=== PATIENT | female | born 1950 | race Caucasian/White ===

== ENCOUNTER 2017-03-27 07:48 | Emergency (ER) | payer OTHER ==
[~2017-03-27] VITALS: Ht 154.9 cm; Wt 60.0 kg
[~2017-03-27 07:48] MED LIST: TRAM50TA PO
[2017-03-27 07:52] VITALS: BP 143/72; PULSE 87; RESP 18; TEMP 98.7; O2SAT 100
[2017-03-27] MEDS ORDERED: FLUO.05%ST TOPICAL (08:48)
--- NOTE | 2017-03-27 08:49 | PD ---
HPI . Itchy skin Chief Complaint: Skin Problem Time Seen by Provider: 08:33 Travel History International Travel<30 days: No Contact w/Intl Traveler<30days: No Traveled to known affect area: No History of Present Illness HPI 67-year-old female presents emergency department for evaluation of what she describes as bedbug bites. Patient states she has had little bugs in her apartment for a urinary half and has had pest control come to evaluate and exterminate but they cannot determine what kind of bugs they are. Patient states she has been bitten all over her body however she has provided wound care and currently is only dealing with bug bites on her left forearm. Patient describes them as itchy. Patient states she is here for a penicillin injection for these bug bites. Patient denies any fever, chills, malaise, chest pain, shortness breath, abdominal pain, nausea, vomiting, diarrhea. PFSH Past Medical History Diminished Hearing: No Musculoskeletal: Yes (CHRONIC NECK AND BACK PROBLEMS) Menopausal: Yes : 0 Para: 0 Past Surgical History Eye Surgery: Yes (BILATERAL CHILD) Tonsillectomy: Yes ( CHILD) Social History Alcohol Use: Yes (DAILY GLASS OF WINE) Tobacco Use: No Substance Use: No Allergies-Medications (Allergen,Severity, Reaction): Coded Allergies: Sulfa (Sulfonamide Antibiotics) (Unverified Allergy, Intermediate, RASH, ) Reported Meds & Prescriptions Reported Meds & Active Scripts Active Fluocinonide Topical (Fluocinonide) 0.05% Soln 1 Applic TOPICAL DAILY Tramadol Hcl (Tramadol HCl) 50 Mg Tab 50 Mg PO Q6HR PRN Review of Systems Except as stated in HPI: all other systems reviewed are Neg Physical Exam Narrative GENERAL: Well-nourished, well-developed 67-year-old female patient in no acute distress. Nontoxic appearing SKIN: Small red patch noted on left forearm. It does not appear erythematous in nature but looks like a skin patch or freckle. No signs of localized infection. Focused skin assessment warm/dry. HEAD: Normocephalic. Atraumatic. EYES: No scleral icterus. No injection or drainage. NECK: Supple, trachea midline. No JVD or lymphadenopathy. CARDIOVASCULAR: Regular rate and rhythm without murmurs, gallops, or rubs. RESPIRATORY: Breath sounds equal bilaterally. No accessory muscle use. GASTROINTESTINAL: Abdomen soft, non-tender, nondistended. MUSCULOSKELETAL: No cyanosis, or edema. BACK: Nontender without obvious deformity. No CVA tenderness. Data Data Last Documented VS Vital Signs Date Time Temp Pulse Resp B/P (MAP) Pulse Ox O2 Delivery O2 Flow Rate FiO2 03/27/17 09:00 03/27/17 07:52 98.7 87 18 100 Room Air Orders Orders Ed Discharge Order (03/27/17 08:49) MDM Medical Decision Making Medical Screen Exam Complete: Yes Emergency Medical Condition: Yes Differential Diagnosis Differential diagnosis includes but not limited to dermatitis, bug bite, cellulitis, anxiety, worried well check Narrative Course 67-year-old female presents emergency department for evaluation of itchy skin on her left forearm that she attributes to bedbug bite. Patient's skin appears intact with no signs or symptoms of infection. There is a small reddened area on the left forearm that does not appear to be a wound, no open area, edema or erythema but appears to be a freckle or some skin patch. The patient describes it as itchy and states she's been doing daily wound care. Patient given a topical steroid cream to reduce the itching and instructed to take Benadryl at night to help with itching. Patient reassured that she is doing a good job with skin care. There are no other areas on her body that can be associated with any skin infection or bug bite. Patient discharged home. Diagnosis Primary Impression: Dermatitis Referrals: Primary Care Physician Patient Instructions: Dermatitis (GEN), General Instructions Additional Instructions: Please return to emergency department if your symptoms return or worsen. Follow up with your primary care provider. Apply thin layer of topical steroid cream daily. It doing a great job with your skin care. Take Benadryl at night until itchy skin resolves Med/Other Pt SpecificInfo: Prescription(s) given Scripts Fluocinonide Topical (Fluocinonide Topical) 0.05% Soln 1 APPLIC TOPICAL DAILY, #60 ML 0 Refills Prov: Polina Wells Tracy GORDON 03/27/17 Disposition: 01 DISCHARGE HOME Condition: Stable Polina Wlels Tracy LEYVA Mar 27, 2017 08:49
== END 2017-03-27 09:02 | disposition home or self-care (01) ==
LOC: NEPD 07:48
DX: L30.9 Dermatitis, unspecified (principal)
CPT/HCPCS: 99283

== ENCOUNTER 2017-05-11 06:50 | Emergency (ER) | payer OTHER ==
[~2017-05-11] VITALS: Ht 154.9 cm; Wt 62.0 kg
[~2017-05-11 06:50] MED LIST changes: +FLUO.05%ST TOPICAL
[2017-05-11 06:51] VITALS: BP 135/70; PULSE 78; RESP 16; TEMP 98.9; O2SAT 97
--- NOTE | 2017-05-11 07:46 | PD ---
HPI Chief Complaint: Bite or Sting Time Seen by Provider: 07:44 Travel History International Travel<30 days: No Contact w/Intl Traveler<30days: No Traveled to known affect area: No History of Present Illness HPI 67-year-old female presents to the emergency department with concern of bites to her right eyebrow area, left forearm, chest, back, left elbow, right hand. She says she's been getting bit by bedbugs and has been treating herself for over a year with hydrocortisone cream and peroxide. She wants the areas examined to make sure her skin is okay and to determine what is biting her. She denies fever, vomiting. Denies airway edema, difficulty breathing. Symptoms are mild in severity. No known relieving or aggravating factors. Has been using hydrocortisone and peroxide for symptom management. Allergies to sulfa. Dr. Sher his primary care provider. Has no other medical complaints. No other modifying factors or associated signs and symptoms. PFSH Past Medical History Diminished Hearing: No Musculoskeletal: Yes (CHRONIC NECK AND BACK PROBLEMS) Influenza Vaccination: Yes ?: Not Menopausal: Yes : 0 Para: 0 Past Surgical History Eye Surgery: Yes (BILATERAL CHILD) Tonsillectomy: Yes ( CHILD) Social History Alcohol Use: Yes (DAILY GLASS OF WINE) Tobacco Use: No Substance Use: No Allergies-Medications (Allergen,Severity, Reaction): Coded Allergies: Sulfa (Sulfonamide Antibiotics) (Unverified Allergy, Intermediate, RASH, 05/11/17) Reported Meds & Prescriptions Reported Meds & Active Scripts Active No Active Prescriptions or Reported Medications Review of Systems Except as stated in HPI: all other systems reviewed are Neg Physical Exam Narrative GENERAL: Well-nourished, well-developed female patient, in no acute distress; afebrile, nontoxic-appearing SKIN: Warm and dry. No rash: I do not see a rash to the chest, anterior neck, back, left forearm, right eye, or any other area of the body. There is a small red lakisha to the ventral aspect of the right hand just below the thumb that could be consistent with a scratch. HEAD: Atraumatic. Normocephalic. EYES: Pupils equal and round. No scleral icterus. No injection or drainage. ENT: Mucosa pink and moist. Airway patent. NECK: Trachea midline. CARDIOVASCULAR: Regular rate. RESPIRATORY: No accessory muscle use. GASTROINTESTINAL: Flat. MUSCULOSKELETAL: No obvious deformities. No clubbing. No cyanosis. No edema. NEUROLOGICAL: Awake and alert. Oriented 3. No obvious cranial nerve deficits. Motor grossly within normal limits. Normal speech. PSYCHIATRIC: Appropriate mood and affect; insight and judgment normal. Data Data Last Documented VS Vital Signs Date Time Temp Pulse Resp B/P (MAP) Pulse Ox O2 Delivery O2 Flow Rate FiO2 05/11/17 06:51 98.9 78 16 135/70 (91) 97 Room Air Orders Orders Ed Discharge Order (05/11/17 07:44) MDM Medical Decision Making Medical Screen Exam Complete: Yes Emergency Medical Condition: Yes Medical Record Reviewed: Yes Differential Diagnosis Bedbugs, dermatitis, normal exam Narrative Course 67-year-old female physical exam consistent with normal skin appearance. The patient has no rash to any areas of concern. She states she put hydrocortisone and peroxide on the areas this morning and states they must have resolved with her treatment. Denies fever, vomiting. Patient is afebrile and nontoxic- appearing. Vital signs are stable. Instructed patient to follow up with dermatology. Instructed patient to follow up with primary care provider. Patient verbalizes understanding and agreement with treatment plan. Patient is medically cleared and stable for discharge. Discussed reasons to return to the emergency department. Patient agrees with treatment plan. The patients vital signs are stable and the patient is stable for outpatient follow-up and treatment. Patient discharged home, stable and in no acute distress. Diagnosis Primary Impression: Normal skin appearance Referrals: Distribution Sales Manager Primary Care Physician Patient Instructions: General Instructions Additional Instructions: Follow-up with dermatology Follow-up with primary care provider Med/Other Pt SpecificInfo: No Change to Meds, No Meds Exist/No RX given Scripts No Active Prescriptions or Reported Meds Disposition: DISCHARGE HOME Condition: Stable Klarissa Iniguez May 11, 2017 07:46
== END 2017-05-11 07:55 | disposition home or self-care (01) ==
LOC: NEPD 06:50
DX: L98.9 Disorder of the skin and subcutaneous tissue, unspecified (principal); Z88.2 Allergy status to sulfonamides; W57.XXXA Bitten or stung by nonvenomous insect and other nonvenomous arthropods, initial encounter
CPT/HCPCS: 99282